=== PATIENT | male | born 1985 | race Caucasian/White ===

== ENCOUNTER 2024-05-13 13:10 | Emergency (ER) | payer OTHER, BC ==
[2024-05-13] MEDS: Lidocaine 1% 10 ML MDV INJECT ONE (13:30)
[2024-05-13] MEDS: Bupivacaine 0.5% 30 ML SDV INJECT PRN (13:30)
[2024-05-13] MEDS: ceFAZolin 1 GM Vial IM ONE (14:54)
[2024-05-13] MEDS: Take Home: Cephalexin 500 MG Cap, 6 Cap Pack PO ONE (15:32)
== END 2024-05-13 15:32 | disposition home or self-care (01) ==
LOC: SUPCPDRO 13:10 → VM.ED 13:10
DX: S68.623A Partial traumatic transphalangeal amputation of left middle finger, initial encounter (principal); X58.XXXA Exposure to other specified factors, initial encounter
CPT/HCPCS: 11760; 73140-F2; 96372; 99283-25; A9270-GY; J0665; J0690; J3490